=== PATIENT | female | born 1980 | race Caucasian/White ===

== ENCOUNTER 2017-01-04 13:46 | Emergency (ER) | payer OTHER ==
--- NOTE | 2017-01-04 15:06 | ERPHSYRPT ---
- History of Present Illness Time Seen by Provider: 01/04/17 14:35 Source: patient Exam Limitations: no limitations Patient Subjective Stated Complaint: PT STATES SHE HAS CHRONIC BACK PAIN STATES SHE HAS BULGING DISCS STATES THAT SHE HAS HAD CT'S AND MRI'S STATES SHE JUST MOVED BACK X1 YEARS AGO AND HASNT' GOTTEN A DR. PT STATES PAIN IS WORSE TODAY. Triage Nursing Assessment: PT ALERT WARM AND DRY RESP EASY NONL ABORED MOVING EXTREMITIES WELL. Timing/Duration: other (chronic) Method of Injury: other (none) Quality: dull, radiating (down left leg) Back Pain Location: lumbar spine Back Pain Radiation: upper legs Severity of Pain-Max: moderate Severity of Pain-Current: moderate Modifying Factors: Improves With: nothing Associated Symptoms: denies symptoms Previous symptoms: same symptoms as today Allergies/Adverse Reactions: No Known Drug Allergies Allergy (Unverified 01/04/17 14:06) Hx Tetanus, Diphtheria Vaccination/Date Given: Yes Hx Influenza Vaccination/Date Given: No Hx Pneumococcal Vaccination/Date Given: No Immunizations Up to Date: Yes - Review of Systems Constitutional: No Symptoms Eyes: No Symptoms Ears, Nose, & Throat: No Symptoms Respiratory: No Symptoms Cardiac: No Symptoms Abdominal/Gastrointestinal: No Symptoms Musculoskeletal: Back Pain Skin: No Symptoms Neurological: No Symptoms Psychological: No Symptoms Endocrine: No Symptoms Hematologic/Lymphatic: No Symptoms Immunological/Allergic: No Symptoms - Past Medical History Pertinent Past Medical History: Yes Other Medical History: CHRONIC BACK PAIN ASTHMA - Past Surgical History Past Surgical History: Yes Other Surgical History: GALLBLADDER,ANKLES,SHOULDER. - Social History Smoking Status: Current every day smoker How long have you smoked: 10 YEARS. Exposure to second hand smoke: Yes Drug Use: none Patient Lives Alone: No - Female History Hx Last Menstrual Period: 5 DAYS - Nursing Vital Signs Temperature: 98.2 F Temperature Source: Oral Pulse Rate: 109 Respiratory Rate: 18 - Physical Exam General Appearance: no apparent distress Eye Exam: eyes nml inspection Ears, Nose, Throat Exam: normal ENT inspection, pharynx normal Neck Exam: normal inspection, non-tender, supple, full range of motion Respiratory Exam: normal breath sounds, lungs clear Cardiovascular Exam: regular rate/rhythm, normal heart sounds, normal peripheral pulses Gastrointestinal Exam: soft, normal bowel sounds Back Exam: normal inspection, normal range of motion Extremity Exam: normal inspection, normal range of motion, pelvis stable, No parasthesia Peripheral Pulses: dorsalis-pedis (R): 3+, dorsalis-pedis (L): 3+ Neurologic Exam: alert, oriented x 3, cooperative, normal mood/affect, nml cerebellar function, nml station & gait, sensation nml Skin Exam: normal color, warm, dry SpO2 Interpretation: normal SpO2: 96 Oxygen Delivery: Room Air - Course Nursing assessment & vital signs reviewed: Yes - Progress Progress: unchanged Discussed with DrManuel: Other (PCP referral 1 week) Counseled pt/family regarding: need for follow-up - Departure Time of Disposition: 15:04 Departure Disposition: Home Clinical Impression: Lumbago Qualifiers: Chronicity: chronic Back pain laterality: left Sciatica presence: with sciatica Sciatica laterality: sciatica of left side Qualified Code(s): M54.42 - Lumbago with sciatica, left side; G89.29 - Other chronic pain Condition: Stable Critical Care Time: No Prescriptions: Cyclobenzaprine HCl 10 mg [Cyclobenzaprine 10 MG] 10 mg PO TID PRN #12 tab Naproxen 1 tab PO BID #20 tablet
[2017-01-04 15:16] VITALS: BP 129/70; PULSE 76; O2SAT 100
== END 2017-01-04 15:15 | disposition home or self-care (01) ==
LOC: ED 13:46
DX: M54.42 Lumbago with sciatica, left side (principal)
CPT/HCPCS: 99281

== ENCOUNTER 2020-04-09 10:30 | Emergency (ER) | payer OTHER, SELFPAY ==
[2020-04-09] MEDS ORDERED: TORAdol 30 mg Injection IM ONE (10:57)
[2020-04-09] MEDS ORDERED: TORAdol 30 mg Injection ONE (11:07)
--- NOTE | 2020-04-09 11:11 | ERPHSYRPT ---
- History of Present Illness Time Seen by Provider: 04/09/20 10:42 Source: patient Exam Limitations: no limitations Patient Subjective Stated Complaint: back pain Triage Nursing Assessment: Pt to ED c/o back pain r/t fall down wet stairs couple days ago. denies LOC, no blood thinners. hx degenerative disc disease and chronic back pain. states the fall just has increased pain. rates 05/20. has been using ice pakcs, old Oxycodone 10 mg, and ibuprofen 600 mg with relief at home this weekend. states pain radiates through lower back and down legs. ambulatory without assistance. lung sounds clear. heart sounds clear. noted large hematoma to R buttock that is swollen and tender to touch. Physician History: 39 years old female presented in the ER with chief complaint of fall and left buttock pain. Patient reports history of chronic back pain and accidentally slipped on wet steps leading to fall on the left buttock area. She did not hit her head. No loss of consciousness. No injury anywhere else. Patient was able to get up and ambulate but gradually worsening pain with ambulation, moderate to severe intensity, sharp in nature and partial relief with taking pain medication/resting. Denies any numbness in the left lower extremity. Denies any midline back pain. Timing/Duration: day(s) (2), sudden, worse Method of Injury: fall Allergies/Adverse Reactions: No Known Drug Allergies Allergy (Verified 04/09/20 11:00) Hx Tetanus, Diphtheria Vaccination/Date Given: Yes Hx Influenza Vaccination/Date Given: No Hx Pneumococcal Vaccination/Date Given: No Travel Risk - International Travel Have you traveled outside of the country in past 3 weeks: No - Coronavirus Screening Are you exhibiting any of the following symptoms?: No Close contact with a COVID-19 positive Pt in past 14-21 Days: No - Past Medical History Pertinent Past Medical History: Yes Respiratory History: Asthma Musculoskeletal History: Degenerative Disk Disease Other Medical History: CHRONIC BACK PAIN - Past Surgical History Past Surgical History: Yes Other Surgical History: GALLBLADDER,ANKLES,SHOULDER. - Social History Smoking Status: Current every day smoker How long have you smoked: 10 YEARS. Exposure to second hand smoke: Yes Drug Use: none Patient Lives Alone: No - Female History Hx Now: (unkn) - Nursing Vital Signs Nursing Vital Signs: Initial Vital Signs Temperature 98.3 F 04/09/20 10:38 Pulse Rate 125 H 06/30/20 10:38 Respiratory Rate 20 04/09/20 10:38 Blood Pressure 157/92 04/09/20 10:38 O2 Sat by Pulse Oximetry 95 04/09/20 10:38 Pain Scale Pain Intensity [Posterior Back 8 ] Pain Intensity 8 - Physical Exam General Appearance: no apparent distress Eye Exam: eyes nml inspection Ears, Nose, Throat Exam: normal ENT inspection Neck Exam: normal inspection, supple, full range of motion Respiratory Exam: normal breath sounds, lungs clear, No chest tenderness Cardiovascular Exam: regular rate/rhythm, normal heart sounds Gastrointestinal Exam: soft, No tenderness Back Exam: normal inspection, normal range of motion, point tenderness (Left buttock with bruising), No CVA tenderness, No vertebral tenderness Neurologic Exam: alert, oriented x 3, cooperative, nml station & gait Skin Exam: normal color, warm SpO2 Interpretation: normal SpO2: 95 O2 Delivery: Room Air - Course Nursing assessment & vital signs reviewed: Yes Ordered Tests: Active Orders 24 hr Category Date Time Status PELVIS (1 OR 2 VIEWS) Stat Exams 04/09/20 11:29 Completed Medication Summary Discontinued Medications Generic Name Dose Route Start Last Admin Trade Name Freq PRN Reason Stop Dose Admin Ketorolac Tromethamine 30 mg 04/09/20 10:57 04/09/20 11:11 Toradol 30 Mg Injection IM 04/09/20 10:58 30 mg STAT ONE Administration Ketorolac Tromethamine Confirm 04/09/20 11:07 Toradol 30 Mg Injection Administered 04/09/20 11:08 Dose 30 mg .ROUTE .STK-MED ONE - Progress Progress: improved, pain not gone completely, re-examined Progress Note: 04/09/20 12:28 Ruled out fracture. She has no difficulty ambulation, bending over. I believe she has contusion soft tissue with some strain on the back. Given Toradol in here with improvement in pain. Will give Bardolph to go home and recommended taking ibuprofen along with it. Discussed signs symptoms of worsening needing return to ER. Outpatient follow-up. Counseled pt/family regarding: diagnosis, need for follow-up, rad results - Departure Departure Disposition: Home Clinical Impression: Contusion, buttock Qualifiers: Encounter type: initial encounter Qualified Code(s): S30.0XXA - Contusion of lower back and pelvis, initial encounter Condition: Stable Critical Care Time: No Referrals: DOCTOR,NO FAMILY [Primary Care Provider] - NEFTALI CARDENAS [ACTIVE STAFF] - Follow Up with PCP/3 days Instructions: Low Back Pain (DC), Contusion (DC) Additional Instructions: Take pain medications as needed. Apply ice. Follow-up with primary care for reevaluation. Return to ER for any worsening. Prescriptions: Hydrocodone/Acetaminophen [Bardolph 7.5-325 Tablet] 1 each PO Q4-6HPRN PRN 3 Days #12 tablet MDD 4 PRN Reason: Pain
--- NOTE | 2020-04-09 11:37 | XRAY ---
Indication: Pain following fall 3 days ago. Comparison: None 3 view sacrum/coccyx demonstrates mild lumbosacral junction disc space loss with also right degenerative facet hypertrophy and a few pelvic phleboliths. No other bony, articular, or soft tissue abnormalities.
[2020-04-09 12:33] VITALS: BP 128/81; PULSE 92; O2SAT 96
== END 2020-04-09 12:47 | disposition home or self-care (01) ==
LOC: ED 10:30
DX: S30.0XXA Contusion of lower back and pelvis, initial encounter (principal); W10.8XXA Fall (on) (from) other stairs and steps, initial encounter; Y93.9 Activity, unspecified; Y92.9 Unspecified place or not applicable; Z72.0 Tobacco use
CPT/HCPCS: 72170; 96372; 99284; J1885